=== PATIENT | female | born 1985 | race Caucasian/White ===

== ENCOUNTER 2020-06-13 10:56 | Emergency (ER) | payer OTHER ==
[~2020-06-13] VITALS: Ht 162.6 cm; Wt 72.6 kg
[2020-06-13] MEDS ORDERED: LAMICTAL5 MG (11:08)
[2020-06-13] MEDS ORDERED: PROZAC 10 MG CA10 MG PO (11:08)
[2020-06-13 11:39] LABS: ABSOLUTE EOSINOPHILS 0.1 thou/uL (0.0-0.7); ABSOLUTE LYMPHOCYTES 1.6 thou/uL (0.8-5.3); ABSOLUTE MONOCYTES 0.6 thou/uL (0.0-1.2); ABSOLUTE NEUTROPHILS 4.2 thou/uL (1.6-8.1); BASOPHILS 0.6 %; EOSINOPHILS 1.8 %; HEMATOCRIT 40.4 % (37.0-47.0); HEMOGLOBIN 12.9 gm/dL (12.0-15.0); LYMPHOCYTES 24.6 %; MCH 26.3 pg (26.0-34.0); MCHC 31.8 g/dL (28.0-37.0); MCV 82.8 fL (80.0-100.0); MONOCYTES 8.9 %; MPV 9.2 fl. (7.2-11.1); NUCLEATED RBCS 0 /100WBC; PLATELET COUNT* 263 thou/uL (150-400); POLYS 64.1 %; RBC 4.88 mil/uL (4.20-5.00); RDW-CV 15.4 % (10.5-14.5); WBC 6.5 thou/uL (4.0-11.0)
[2020-06-13 11:46] LABS: CALCIUM 8.6 mg/dL (8.5-10.1); CREATININE 0.7 mg/dL (0.6-1.3); POTASSIUM 4.1 mmol/L (3.5-5.1)
[2020-06-13 11:48] LABS: APTT 26.8 Seconds (25.0-31.3); PROTIME 10.9 Seconds (9.20-11.50)
[2020-06-13 11:56] LABS: TOTAL BILIRUBIN 0.2 mg/dL (<0.1-1.0); TOTAL PROTEIN 8.2 g/dL (6.4-8.2)
[2020-06-13] MEDS ORDERED: NORCO 5-325 TA1 EAC2 PO (13:53)
[2020-06-13] MEDS ORDERED: FLEXERIL PO (14:04)
[2020-06-13 14:50] VITALS: BP 111/70
--- NOTE | 2020-06-13 16:31 | EKG ---
[place] [address] ELECTROCARDIOGRAM REPORT Name: NOEMI KRISHNAMURTHY Room: [facility]#: [id number] Admission: 06/13/20 Attend Phys: Discharge: 06/13/20 Date of : 87 Date of Service: 06/13/20 1102 Report #: [id number] THIS REPORT FOR: //name// [facility] ED Test Date: 2020-06-13 Test Time: 11:02:04 Pat Name: NOEMI KRISHNAMURTHY Department: Room: Gender: Security Officer: VASILIY : 1985 Requested By: Aubrey Goldberg Order Number: [id number] MD: Curtis Funk Measurements Intervals [place] Rate: 63 P: 63 MD: 150 QRS: -37 QRSD: 96 T: 30 QT: 406 QTc: 416 Interpretive Statements Sinus rhythm Left axis deviation RSR' in V1 or V2, probably normal variant No previous ECG available for comparison Electronically Signed On 06-13-2020 16:31:33 FINANCIAL CONSULTANT by Curtis Funk [email or web address] <ELECTRONICALLY SIGNED> By: Curtis Funk MD, [facility] 06/13/20 1631 01 01 Curtis Funk MD, FACC /EPI
--- NOTE | 2020-06-13 16:34 | EKG ---
[place] [address] ELECTROCARDIOGRAM REPORT Name: NOEMI KRISHNAMURTHY Room: [facility]#: [id number] Admission: 06/13/20 Attend Phys: Discharge: 06/13/20 Date of : 87 Date of Service: 06/13/20 1351 Report #: [id number] THIS REPORT FOR: //name// 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 : 1985 Requested By: Aubrey Goldberg Order Number: [id number] MD: Curtis Funk Measurements Intervals [place] Rate: 60 P: 61 MT: 157 QRS: -38 QRSD: 92 T: 15 QT: 429 QTc: 429 Interpretive Statements Sinus rhythm Left axis deviation RSR' in V1 or V2, probably normal variant Right precordial ST-T abnormality; consider ischemia Compared to ECG 06/13/2020 11:02:[address]-T changes are noted Electronically Signed On 06-13-2020 16:34:18 GUIDE WINDER by Curtis Funk [email or web address] <ELECTRONICALLY SIGNED> By: Curtis Funk MD, FACC 06/13/20 1634 1351 1351 Curtis Funk MD, FACC /EPI
== END 2020-06-13 14:50 | disposition home or self-care (01) ==
LOC: M.ERS 10:56
PROVIDERS: Emergency Medicine Emergency Medical Services
DX: R07.9 Chest pain, unspecified (principal); M54.2 Cervicalgia; R51.9 Headache, unspecified; Z79.899 Other long term (current) drug therapy